=== PATIENT | male | born 1980 | race Caucasian/White ===

== ENCOUNTER 2018-11-11 20:24 | Emergency (ER) | payer BC ==
[2018-11-11] MEDS ORDERED: NA CHLORIDE 0.9% 1,000 ML ONE (21:38)
[2018-11-11 22:43] LABS: Absolute Lymphocytes (CBC) 1.6 K/uL (0.7-4.9); Basophils % 0.3 % (0-1.3); Eosinophils % 0.4 % (0-4.4); Hematocrit 47.8 % (39.6-49.0); Lymphocytes % 14.1 % (15.3-44.8); MPV 8.9 fL (7.6-11.3); Monocytes % 5.6 % (3.3-12.3); RBC Red Blood Cell Count 5.58 M/uL (4.33-5.43)
[2018-11-11 22:44] LABS: Protime INR 1.04
[2018-11-11 23:33] LABS: ALT/SGPT 56 U/L (12-78); AST/SGOT 29 U/L (15-37); Albumin 3.9 g/dL (3.4-5.0); Alkaline Phosphatase 69 U/L (45-117); BUN Blood Urea Nitrogen 21 mg/dL (7-18); Bicarbonate 26 mmol/L (21-32); Bilirubin Direct < 0.1 mg/dL (0-0.2); Bilirubin Total 0.3 mg/dL (0.2-1.0); Glucose Level 103 mg/dL (74-106); Potassium 4.2 mmol/L (3.5-5.1); Protein, Total 8.2 g/dL (6.4-8.2); Sodium Level 140 mmol/L (136-145); Troponin (Emerg Dept Use Only) < 0.02 ng/mL (0.0-0.045)
[2018-11-12] MEDS ORDERED: ASPIRIN 81 MG CHEWABLE TABLET ONE (04:43)
--- NOTE | 2018-11-12 08:07 | RAD REPORT ---
EXAM DESCRIPTION: MRI - Brain Wo Cont - 11/12/2018 7:17 am CLINICAL HISTORY: Syncope, stroke-like symptoms COMPARISON: CT head November 11 TECHNIQUE: Sagittal T1-weighted images were obtained along with axial PD, heavily T2-weighted and T2 -FLAIR images. Axial DWI and ADC mapping sequences were also obtained along with coronal heavily T2-w eighted images. FINDINGS: No intracranial hemorrhage, mass or acute infarction. There is no edema or shift of midlin e structures. No extra-axial fluid collections. Desir-matter/white matter junction is preserved. Signa l voids are seen as a normal finding in the major intracranial vessels. No globe or orbital content abnormality. No sella or supra sella abnormality. Mastoid air cells and paranasal sinuses are clear. IMPRESSION: Negative non-contrast MRI of the Brain.
--- NOTE | 2018-11-12 08:38 | ER ---
Nurse's Notes [facility] Name: Julito Alva III Age: 37 yrs Sex: Male : 1980 Arrival Date: 11/11/2018 Time: 20:25 Bed 7 Private MD: Diagnosis: Left facial numbness Presentation: 11/11 20:33 Presenting complaint: Patient states: Around 1900 tonight I was sitting in bed, felt la1 tingly and flush and like I was going to pass out, I stood up and I really felt like I was going to pass out. At that same time the left side of my face began to feel a little numb. Transition of care: patient was not received from another setting of care. Onset of symptoms was November 11, 2018 at 19:00. Risk Assessment: Do you want to hurt yourself or someone else? Patient reports no desire to harm self or others. Initial Sepsis Screen: Does the patient meet any 2 criteria? No. Patient's initial sepsis screen is negative. Does the patient have a suspected source of infection? No. Patient's initial sepsis screen is negative. Care prior to arrival: None. 20:33 Method Of Arrival: Ambulatory la1 20:33 Acuity: MADDIE 2 la1 Historical: - Allergies: 20:36 No Known Allergies; la1 - Home Meds: 20:36 None [Active]; la1 - PMHx: 20:36 None; la1 - PSHx: 20:36 None; la1 - Immunization history:: Adult Immunizations up to date. - Social history:: Smoking status: Patient/guardian denies using tobacco. - Ebola Screening: : No symptoms or risks identified at this time. - Family history:: not pertinent. - Hospitalizations: : No recent hospitalization is reported. Screenin:49 Abuse screen: Denies threats or abuse. Denies injuries from another. Nutritional ch screening: No deficits noted. Tuberculosis screening: No symptoms or risk factors identified. Fall Risk None identified. Assessment: 20:49 General: Appears in no apparent distress. comfortable, Behavior is calm, cooperative, ch appropriate for age. Pain: Complains of pain in left jaw Pain currently is 4 out of 10 on a pain scale. Pain began suddenly. Neuro: No deficits noted. Level of Consciousness is awake, alert, obeys commands, Oriented to person, place, time, situation, Save All Operator are equal bilaterally Moves all extremities. Full function Gait is steady, Speech is normal, Facial symmetry appears normal, Facial symmetry: tongue is midline, Pupils are PERRLA, Reports pt c/o feeling tingling and numbness to beatris sides of face, and then pain to L jaw. Neuro: Reports pt also states he felt like he was going to pass out at home, and had a headache and dizziness since 11/07/18. Respiratory: Airway is patent Trachea midline Respiratory effort is even, unlabored, Breath sounds are clear bilaterally. GI: No signs and/or symptoms were reported involving the gastrointestinal system. : No signs and/or symptoms were reported regarding the genitourinary system. Derm: Skin is pink, warm \T\ dry. Musculoskeletal: No signs and/or symptoms reported regarding the musculoskeletal system. 21:38 Patient has been NPO before screening. The patient is alert, and able to follow ak1 commands. The patient does not exhibit slurred or garbled speech. The patient is not exhibiting difficulty speaking. The patient is exhibiting difficulty understanding words. The patient is able to swallow own secretions with no drooling or need for suction. Patient tolerated one teaspoon of water. No drooling, immediate coughing, gurgling, or clearing of the throat was noted. The patient tolerated 90mL of water. No drooling, immediate coughing, gurgling, or clearing of the throat was noted. The patient passed the bedside swallow screening. Oral medications may be given as ordered. Contact Physician for further diet orders. Provider notified of bedside swallow screening results: Brad Bautista MD. 23:01 VAN Scoring: Arm Drift: Patients demonstrates NO arm weakness. Patient is VAN Negative. ch Visual Disturbance: No visual disturbance noted. Aphasia: No aphasia noted. Neglect: No neglect noted. T-PA (Activase) Screening: Contraindications: Rapidly improving condition or minor deficit: Yes. 23:01 Reassessment: Patient appears in no apparent distress at this time. Patient and/or ch family updated on plan of care and expected duration. Pain level reassessed. Patient is alert, oriented x 3, equal unlabored respirations, skin warm/dry/pink. Patient denies pain at this time. Patient states feeling better. Patient states symptoms have improved. 11/12 00:00 Reassessment: Patient appears in no apparent distress at this time. Patient and/or family updated on plan of care and expected duration. Pain level reassessed. Patient is alert, oriented x 3, equal unlabored respirations, skin warm/dry/pink. pt to be held in ER till MRI is available tomorrow morning. pt symptoms are improved, still c/o feeling tingling in L lower jaw. pt verb understanding of staying in ER till morning. 00:43 Reassessment: Patient appears in no apparent distress at this time. No changes from previously documented assessment. Patient and/or family updated on plan of care and expected duration. Pain level reassessed. Patient is alert, oriented x 3, equal unlabored respirations, skin warm/dry/pink. 02:14 Reassessment: Patient appears in no apparent distress at this time. No changes from previously documented assessment. Patient and/or family updated on plan of care and expected duration. Pain level reassessed. Patient is alert, oriented x 3, equal unlabored respirations, skin warm/dry/pink. pt oob, ambulates to restroom then to new quieter room with TV and closing door while he waits for his MRI. 03:30 Reassessment: Patient appears in no apparent distress at this time. No changes from previously documented assessment. Patient and/or family updated on plan of care and expected duration. Pain level reassessed. 04:30 Reassessment: Patient appears in no apparent distress at this time. pt asleep. 05:30 Reassessment: Patient appears in no apparent distress at this time. No changes from previously documented assessment. 06:04 Reassessment: Patient appears in no apparent distress at this time. No changes from previously documented assessment. 07:12 Reassessment: Patient appears in no apparent distress at this time. Patient and/or family updated on plan of care and expected duration. Pain level reassessed. Patient is alert, oriented x 3, equal unlabored respirations, skin warm/dry/pink. report given to milka omer, pt in MRI now. 07:25 Reassessment: Pt back from MRI via wheelchair.. aa5 07:27 General: Appears comfortable. Pain: Denies pain. Neuro: Level of Consciousness is aa5 awake, alert, obeys commands, Oriented to person, place, time, situation, Save All Operator are equal bilaterally Moves all extremities. Gait is steady, Speech is normal, Facial symmetry appears normal, Pupils are PERRLA, Denies weakness blurred vision dizziness, difficulty swallowing, paresthesias numbness headache. Cardiovascular: Heart tones S1 S2 present Rhythm is sinus rhythm. Respiratory: Airway is patent Respiratory effort is even, unlabored, Respiratory pattern is regular, symmetrical. GI: Patient currently denies nausea, vomiting. : No signs and/or symptoms were reported regarding the genitourinary system. EENT: No signs and/or symptoms were reported regarding the EENT system. Derm: Skin is pink, warm \T\ dry. Musculoskeletal: Range of motion: intact in all extremities. 07:27 Reassessment: Pt notified of wait time for MRI results, pt verbalized understanding. . aa5 08:50 Reassessment: Patient is alert, oriented x 3, equal unlabored respirations, skin aa5 warm/dry/pink. Patient denies pain at this time. Denies any other symptoms . Vital Signs: 11/11 20:35 BP 163 / 87; Pulse 85; Resp 16; Temp 98.4; Pulse Ox 98% on R/A; Weight 119.29 kg; la1 Height 6 ft. 1 in. (185.42 cm); 21:00 BP 137 / 88; Pulse 68; Resp 14; Pulse Ox 99% on R/A; Pain 0/10; ch 22:00 BP 132 / 72; Pulse 70; Resp 15; Pulse Ox 100% on R/A; Pain 0/10; ch 23:01 BP 117 / 74; Pulse 62; Resp 14; Temp 97.8; Pulse Ox 99% on R/A; Pain 0/10; ch 11/12 00:43 BP 108 / 84; Pulse 63; Resp 14; Temp 98.1; Pulse Ox 99% on R/A; Pain 0/10; ch 02:00 BP 116 / 74; Pulse 66; Resp 17; Pulse Ox 97% on R/A; lp1 05:34 BP 130 / 78; Pulse 97; Resp 16; Temp 97.; ag4 05:34 Pulse Ox 100% on R/A; ag4 06:06 BP 126 / 80; Pulse 82; Resp 16; Temp 98.2; Pulse Ox 99% on R/A; Pain 0/10; ch 07:27 BP 141 / 89; Pulse 63; Resp 16 S; Temp 98.0(O); Pulse Ox 98% on R/A; Pain 0/10; aa5 08:06 BP 128 / 87; Pulse 62; Resp 15; Pulse Ox 98% ; sv 08:45 BP 130 / 84; Pulse 64; Resp 16 S; Pulse Ox 98% on R/A; Pain 0/10; aa5 11/11 20:35 Body Mass Index 34.70 (119.29 kg, 185.42 cm) la1 NIH Stroke Scale Scores: 11/11 21:38 NIHSS Score: 0 ak1 11/12 07:27 NIHSS Score: 0 aa5 ED Course: 11/11 20:25 Patient arrived in ED. am2 20:35 Triage completed. la1 20:35 Arm band placed on right wrist. la1 20:48 Radha Hernandez, RN is Primary Nurse. ch 20:49 No apparent distress. Resting quietly. ch 20:49 Patient has correct armband on for positive identification. Bed in low position. Call ch light in reach. Adult w/ patient. Pulse ox on. NIBP on. 20:49 No provider procedures requiring assistance completed. ch 20:55 Brad Bautista MD is Attending Physician. wa 21:10 CT completed. Patient tolerated procedure well. Patient moved back from CT. mw3 21:16 CT Stroke Brain w/o Contrast In Process Unspecified. EDMS 21:19 Inserted saline lock: 20 gauge in left forearm, using aseptic technique. Blood ch collected. 21:28 Stroke CXR 1 View In Process Unspecified. EDMS 21:50 IV discontinued, intact, bleeding controlled, Pressure dressing applied, pt IV in L FA ch appears to be infiltrated, pt has swelling to area. no redness, pt c/o slight pain. IV removed. 22:00 Missed attempt(s): 20 gauge in right antecubital area. Bleeding controlled, band aid ch applied, catheter tip intact. 22:10 Inserted saline lock: 20 gauge in right antecubital area, using aseptic technique. ch Blood collected. Started by Jade Wheeler, recollect labs sent off. 11/12 07:01 Patient moved to MRI via wheelchair. em2 07:11 MRI - Brain Wo Cont In Process Unspecified. EDMS 07:28 MRI completed. Patient tolerated well. Patient moved back from MRI. em2 Administered Medications: 11/11 21:24 Drug: NS 0.9% 1000 ml Route: IV; Rate: 1 bolus; Site: left forearm; lp1 23:04 Follow up: IV Status: Completed infusion; IV Intake: 1000ml 11/12 04:29 Drug: Aspirin Chewable Tablet 324 mg Route: PO; ch 06:05 Follow up: Response: No adverse reaction ch 06:05 Follow up: Response: No adverse reaction ch Intake: 11/11 23:04 IV: 1000ml; Total: 1000ml. ch Outcome: 11/12 08:37 Discharge ordered by . ps1 08:55 Discharged to home ambulatory, with significant other. aa5 08:55 Condition: stable 08:55 Discharge instructions given to patient, Instructed on discharge instructions, follow up and referral plans. medication usage, Demonstrated understanding of instructions, follow-up care, medications, Prescriptions given X 3. 09:02 Patient left the ED. aa5 NIH Stroke Scale - NIH Stroke Score Date: 11/11/2018 Time: 21:38 Total Score = 0 1a. Level of Consciousness (LOC) - 0(Alert) 1b. Level of Consciousness (LOC) (Year \T\ Age) - 0(Both) 1c. 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 Best Gaze (Lateral Gaze Paresis) - 0(Normal) 3. Visual Field Loss - 0(No visual loss) 4. Facial Palsy - 0(Normal) 5a. Left Arm: Motor (10-second hold) - 0(No drift) 5b. Right Arm: Motor (10-second hold) - 0(No drift) 6a. Left Leg: Motor (5-second hold - always test supine) - 0(No drift) 6b. Right Leg: Motor (5-second hold - always test supine) - 0(No drift) 7. Limb Ataxia (finger/nose \T\ heel/adrian - test with eyes open) - 0(Absent) 8. Sensory Loss (pinprick arms/legs/face) - 0(Normal) 9. Best Language: Aphasia (description/naming/reading) - 0(No aphasia) 10. Dysarthria (speech clarity - read or repeat words) - 0(Normal) 11. Extinction and Inattention (visual/tactile/auditory/spatial/personal) - 0(No abnormality) Initials: ak1 NIH Stroke Scale - NIH Stroke Score Date: 11/12/2018 Time: 07:27 Total Score = 0 1a. Level of Consciousness (LOC) - 0(Alert) 1b. Level of Consciousness (LOC) (Year \T\ Age) - 0(Both) 1c. 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 Best Gaze (Lateral Gaze Paresis) - 0(Normal) 3. Visual Field Loss - 0(No visual loss) 4. Facial Palsy - 0(Normal) 5a. Left Arm: Motor (10-second hold) - 0(No drift) 5b. Right Arm: Motor (10-second hold) - 0(No drift) 6a. Left Leg: Motor (5-second hold - always test supine) - 0(No drift) 6b. Right Leg: Motor (5-second hold - always test supine) - 0(No drift) 7. Limb Ataxia (finger/nose \T\ heel/adrian - test with eyes open) - 0(Absent) 8. Sensory Loss (pinprick arms/legs/face) - 0(Normal) 9. Best Language: Aphasia (description/naming/reading) - 0(No aphasia) 10. Dysarthria (speech clarity - read or repeat words) - 0(Normal) 11. Extinction and Inattention (visual/tactile/auditory/spatial/personal) - 0(No abnormality) Initials: aa5 Signatures: Dispatcher [employer] EDRadha Guadalupe, RN Fay Morrow ch RN Milka Yadav RN RN aa5 Lizeth Escamilla, RN RN candy1 Huang Rahman 2 Gorge Valdez RN RN la1 Carin Spears RN RN ak1 Tenisha Martinez am2 Brad Bautista MD MD wa Singer, Phillip, MD MD ps1 Willis, Michelle 3 Khurram Partida 4
--- NOTE | 2018-11-12 08:38 | EDPHYS ---
Physician Documentation [facility] Name: Julito Alva III Age: 37 yrs Sex: Male : 1980 Arrival Date: 11/11/2018 Time: 20:25 Bed 7 Private MD: ED Physician Brad Bautista HPI: 11/11 21:27 This 37 yrs old Male presents to ER via Ambulatory with complaints of wa Numbness Of Face, Near Syncope. 21:27 The patient's problem is reported as paresthesias, in left side of face, dizziness. wa Onset: The symptoms/episode began/occurred 4 day(s) ago. Duration: The episodes are intermittent. Context: the episode(s) was witnessed, by no one, symptoms became apparent 4 days ago, occurred at home, occurred while the patient was at rest, Possible contributing factors include: none. The symptoms are alleviated by nothing. The symptoms are aggravated by standing, walking. Associated signs and symptoms: Pertinent positives: dizziness, Pertinent negatives: abdominal pain, ataxia, blurred vision, chest pain, confusion, headache, nausea, palpitations, shortness of breath. Severity of symptoms: At their worst the symptoms were moderate in the emergency department the symptoms are unchanged. Patient's baseline: Neuro: alert and fully oriented, Motor: no deficits, Ambulation: walks without assistance, Speech: normal, The patient has a previous history of none. The patient has not experienced similar symptoms in the past. The patient has been recently seen by a physician: 3 day(s) ago, with similar presenting complaints, was started on prednisone for potential inner ear problem, per pt. pt states 4 days ago he suddenly felt flushed and then became dizzy. described dizziness as feeling a bit off balance. worse with certain movements of the head. denies MANZANO. 3 days ago, saw [facility] and scripted for steroids that he's taking. was actually feeling better but tonight felt a sensation of L lower face numbness. denies MANZANO, slurred speech or difficulty walking or talking. Historical: - Allergies: 20:36 No Known Allergies; la1 - Home Meds: 20:36 None [Active]; la1 - PMHx: 20:36 None; la1 - PSHx: 20:36 None; la1 - Immunization history:: Adult Immunizations up to date. - Social history:: Smoking status: Patient/guardian denies using tobacco. - Ebola Screening: : No symptoms or risks identified at this time. - Family history:: not pertinent. - Hospitalizations: : No recent hospitalization is reported. ROS: 21:37 Constitutional: Negative for fever, chills, and weight loss, Eyes: Negative for injury, wa pain, redness, and discharge, ENT: Negative for injury, pain, and discharge, Neck: Negative for injury, pain, and swelling, Cardiovascular: Negative for chest pain, palpitations, and edema, Respiratory: Negative for shortness of breath, cough, wheezing, and pleuritic chest pain, Abdomen/GI: Negative for abdominal pain, nausea, vomiting, diarrhea, and constipation, Back: Negative for injury and pain, : Negative for injury, bleeding, discharge, and swelling, MS/Extremity: Negative for injury and deformity, Skin: Negative for injury, rash, and discoloration. 21:37 Neuro: Positive for dizziness, L facial numbness. 21:37 All other systems are negative. Exam: 21:37 Radiologist reports: on license of [facility] 21:37 Constitutional: This is a well developed, well nourished patient who is awake, alert, and in no acute distress. Head/Face: Normocephalic, atraumatic. Eyes: Pupils equal round and reactive to light, extra-ocular motions intact. Lids and lashes normal. Conjunctiva and sclera are non-icteric and not injected. Cornea within normal limits. Periorbital areas with no swelling, redness, or edema. ENT: Nares patent. No nasal discharge, no septal abnormalities noted. Tympanic membranes are normal and external auditory canals are clear. Oropharynx with no redness, swelling, or masses, exudates, or evidence of obstruction, uvula midline. Mucous membranes moist. Neck: Trachea midline, no thyromegaly or masses palpated, and no cervical lymphadenopathy. Supple, full range of motion without nuchal rigidity, or vertebral point tenderness. No Meningismus. Chest/axilla: Normal chest wall appearance and motion. Nontender with no deformity. No lesions are appreciated. Cardiovascular: Regular rate and rhythm with a normal S1 and S2. No gallops, murmurs, or rubs. Normal PMI, no JVD. No pulse deficits. Respiratory: Lungs have equal breath sounds bilaterally, clear to auscultation and percussion. No rales, rhonchi or wheezes noted. No increased work of breathing, no retractions or nasal flaring. Abdomen/GI: Soft, non-tender, with normal bowel sounds. No distension or tympany. No guarding or rebound. No evidence of tenderness throughout. Back: No spinal tenderness. No costovertebral tenderness. Full range of motion. Skin: Warm, dry with normal turgor. Normal color with no rashes, no lesions, and no evidence of cellulitis. MS/ Extremity: Pulses equal, no cyanosis. Neurovascular intact. Full, normal range of motion. Psych: Awake, alert, with orientation to person, place and time. Behavior, mood, and affect are within normal limits. 21:37 Neuro: Orientation: is normal, appropriate for stated age, no acute changes, Mentation: is normal, Cranial nerves: grossly normal, Cerebellar function: Romberg testing is negative, normal finger to nose testing, heel to adrian testing is normal, able to perform alternating rapid hand movements, Motor: is normal, Sensation: numbness, of the left cheek and left jaw, Gait: is steady. Vital Signs: 20:35 BP 163 / 87; Pulse 85; Resp 16; Temp 98.4; Pulse Ox 98% on R/A; Weight 119.29 kg; la1 Height 6 ft. 1 in. (185.42 cm); 21:00 BP 137 / 88; Pulse 68; Resp 14; Pulse Ox 99% on R/A; Pain 0/10; ch 22:00 BP 132 / 72; Pulse 70; Resp 15; Pulse Ox 100% on R/A; Pain 0/10; ch 23:01 BP 117 / 74; Pulse 62; Resp 14; Temp 97.8; Pulse Ox 99% on R/A; Pain 0/10; ch 07/08 00:43 BP 108 / 84; Pulse 63; Resp 14; Temp 98.1; Pulse Ox 99% on R/A; Pain 0/10; ch 02:00 BP 116 / 74; Pulse 66; Resp 17; Pulse Ox 97% on R/A; lp1 05:34 BP 130 / 78; Pulse 97; Resp 16; Temp 97.; ag4 05:34 Pulse Ox 100% on R/A; ag4 06:06 BP 126 / 80; Pulse 82; Resp 16; Temp 98.2; Pulse Ox 99% on R/A; Pain 0/10; ch 07:27 BP 141 / 89; Pulse 63; Resp 16 S; Temp 98.0(O); Pulse Ox 98% on R/A; Pain 0/10; aa5 08:06 BP 128 / 87; Pulse 62; Resp 15; Pulse Ox 98% ; sv 08:45 BP 130 / 84; Pulse 64; Resp 16 S; Pulse Ox 98% on R/A; Pain 0/10; aa5 11/11 20:35 Body Mass Index 34.70 (119.29 kg, 185.42 cm) la1 NIH Stroke Scale Scores: 11/11 21:38 NIHSS Score: 0 ak1 11/12 07:27 NIHSS Score: 0 aa5 MDM: 11/11 20:56 Patient medically screened. ky 21:38 Differential diagnosis: CVA, TIA, consider other neurological path like MS. exam wa inconsistent with Bruce's. 11/12 02:09 Data reviewed: vital signs, nurses notes. Test interpretation: by ED physician or ky midlevel provider: labs noted for elevated wbc at 11.7. CT brain noted negative for acute process. ED course: pt remained same. No neurologist in [place] as such hospitalist will not admit. will hold for MRI in the AM and d/c with neuro f/u if negative. will transfer if MRI abdnml. 02:11 Test interpretation: by ED physician or midlevel provider: EKG: interp by me: HR 66. wa nml axis. nml intervals. no acute zonal ischemic changes noted. 07:29 Transition of care: After a detail discussion of the patient's case, care is wa transferred to Avelino Patel MD. Special discussion: Dr. Patel to check MRI results and dispo pt as needed. 08:31 ED course: patient states that his symptoms resolved. MRI negative. Home with [place] ps1 palsy medications wait and see. Ophtho if symptoms arise + eye patch. . 11/11 20:58 Order name: Hepatic Function ky 11/11 20:58 Order name: Troponin (emerg Dept Use Only) ky 11/11 20:58 Order name: Basic Metabolic Panel ky 11/11 20:58 Order name: CBC with Diff; Complete Time: 23:49 11/11 20:58 Order name: Protime (+inr); Complete Time: 23:49 11/11 21:00 Order name: Sed Rate; Complete Time: 23:49 11/11 20:58 Order name: CT Stroke Brain w/o Contrast 11/11 20:58 Order name: Stroke CXR 1 View 11/11 21:06 Order name: Liver (Hepatic) Function; Complete Time: 23:49 EDMS 11/11 21:06 Order name: Troponin (Emerg Dept Use Only); Complete Time: 23:49 EDMS 11/11 21:06 Order name: Basic Metabolic Panel; Complete Time: 23:49 EDMS 11/12 00:10 Order name: MRI - Brain Wo Cont; Complete Time: 08:41 ky 11/12 05:04 Order name: Glucose, Ancillary Testing EDMS 11/12 05:05 Order name: Glucose, Ancillary Testing; Complete Time: 08:41 EDMS 11/11 20:58 Order name: EKG; Complete Time: 21:07 11/11 20:58 Order name: Accucheck; Complete Time: 21:38 11/11 20:58 Order name: Cardiac monitoring; Complete Time: 21:38 11/11 20:58 Order name: EKG - Nurse/Tech; Complete Time: 21:38 11/11 20:58 Order name: IV Saline Lock; Complete Time: 21:38 11/11 20:58 Order name: Labs collected and sent; Complete Time: 21:39 11/11 20:58 Order name: NPO; Complete Time: 21:39 11/11 20:58 Order name: O2 Per Protocol; Complete Time: 21:39 11/11 20:58 Order name: O2 Sat Monitoring; Complete Time: 21:39 11/12 06:25 Order name: Diet Regular; Complete Time: 06:25 ch Administered Medications: 11/11 21:24 Drug: NS 0.9% 1000 ml Route: IV; Rate: 1 bolus; Site: left forearm; lp1 23:04 Follow up: IV Status: Completed infusion; IV Intake: 1000ml 11/12 04:29 Drug: Aspirin Chewable Tablet 324 mg Route: PO; ch 06:05 Follow up: Response: No adverse reaction ch 06:05 Follow up: Response: No adverse reaction ch Disposition: 11/12/18 08:37 Discharged to Home. Impression: Left facial numbness. - Condition is Stable. - Discharge Instructions: Bruce Palsy, Adult. - Prescriptions for Acyclovir 800 mg Oral Tablet - take 1 tablet by ORAL route 5 times per day for 10 days; 50 tablet. Medrol (Enzo) 4 mg Oral Tablets, Dose Pack - take 1 tablet by ORAL route as directed - follow package instructions; 1 packet. Erythromycin 5 mg/gram (0.5 %) Ophthalmic Ointment - apply 1 centimeter by OPHTHALMIC route 2-3 times daily for 7 days; 1 tube. - Medication Reconciliation Form, Thank You Letter, Antibiotic Education, Prescription Opioid Use form. - Follow up: Private Physician; When: As needed; Reason: Further diagnostic work-up, Recheck today's complaints, Continuance of care, Re-evaluation by your physician. Follow up: Emergency Department; When: As needed; Reason: Worsening of condition. - Problem is new. - Symptoms are resolved. NIH Stroke Scale - NIH Stroke Score Date: 11/11/2018 Time: 21:38 Total Score = 0 1a. Level of Consciousness (LOC) - 0(Alert) 1b. Level of Consciousness (LOC) (Year \T\ Age) - 0(Both) 1c. LOC Commands (Open \T\ Closes Eyes/President [place]) - 0(Both) 2. Best Gaze (Lateral Gaze Paresis) - 0(Normal) 3. Visual Field Loss - 0(No visual loss) 4. Facial Palsy - 0(Normal) 5a. Left Arm: Motor (10-second hold) - 0(No drift) 5b. Right Arm: Motor (10-second hold) - 0(No drift) 6a. Left Leg: Motor (5-second hold - always test supine) - 0(No drift) 6b. Right Leg: Motor (5-second hold - always test supine) - 0(No drift) 7. Limb Ataxia (finger/nose \T\ heel/adrian - test with eyes open) - 0(Absent) 8. Sensory Loss (pinprick arms/legs/face) - 0(Normal) 9. Best Language: Aphasia (description/naming/reading) - 0(No aphasia) 10. Dysarthria (speech clarity - read or repeat words) - 0(Normal) 11. Extinction and Inattention (visual/tactile/auditory/spatial/personal) - 0(No abnormality) Initials: ak1 NIH Stroke Scale - NIH Stroke Score Date: 11/12/2018 Time: 07:27 Total Score = 0 1a. Level of Consciousness (LOC) - 0(Alert) 1b. Level of Consciousness (LOC) (Year \T\ Age) - 0(Both) 1c. LOC Commands (Open \T\ Closes Eyes/President [place]) - 0(Both) 2. Best Gaze (Lateral Gaze Paresis) - 0(Normal) 3. Visual Field Loss - 0(No visual loss) 4. Facial Palsy - 0(Normal) 5a. Left Arm: Motor (10-second hold) - 0(No drift) 5b. Right Arm: Motor (10-second hold) - 0(No drift) 6a. Left Leg: Motor (5-second hold - always test supine) - 0(No drift) 6b. Right Leg: Motor (5-second hold - always test supine) - 0(No drift) 7. Limb Ataxia (finger/nose \T\ heel/adrian - test with eyes open) - 0(Absent) 8. Sensory Loss (pinprick arms/legs/face) - 0(Normal) 9. Best Language: Aphasia (description/naming/reading) - 0(No aphasia) 10. Dysarthria (speech clarity - read or repeat words) - 0(Normal) 11. Extinction and Inattention (visual/tactile/auditory/spatial/personal) - 0(No abnormality) Initials: aa5 Signatures: Dispatcher [employer] EDMS Radha Hernandez RN RN Laina Pope RN RN aa5 Lizeth Escamilla RN RN lp1 Gorge Valdez RN RN la1 Brad Bautista MD MD wa Avelino Patel MD MD ps1 Corrections: (The following items were deleted from the chart) 09:02 08:37 11/12/2018 08:37 Discharged to Home. Impression: Left facial numbness. aa5 Condition is Stable. Forms are Medication Reconciliation Form, Thank You Letter, Antibiotic Education, Prescription Opioid Use. Follow up: Private Physician; When: As needed; Reason: Further diagnostic work-up, Recheck today's complaints, Continuance of care, Re-evaluation by your physician. Follow up: Emergency Department; When: As needed; Reason: Worsening of condition. Problem is new. Symptoms are resolved. ps1
--- NOTE | 2018-11-12 08:46 | RAD REPORT ---
EXAM DESCRIPTION: RAD - Chest Single View - 11/11/2018 9:30 pm CLINICAL HISTORY: Dizziness, weakness, shortness of breath COMPARISON: None. TECHNIQUE: AP portable chest image was obtained 2125 hours . FINDINGS: Lungs are clear. Heart and vasculature are normal. No measurable pleural effusion and no p neumothorax. No acute bony abnormality seen. No acute aortic findings suspected. IMPRESSION: No acute cardiopulmonary process.
--- NOTE | 2018-11-12 09:53 | RAD REPORT ---
EXAM DESCRIPTION: CT - Ct Stroke Brain Wo Cont - 11/11/2018 10:23 pm ADDENDUM #1 Clinical findings were conveyed to Dr. Bautista. Electronically signed by: Simona Blanco MD 11/12/2018 12:02 AM CDT End of Addendum EXAM DESCRIPTION: Ct Stroke Brain Wo Cont CLINICAL HISTORY: 37 years Male dizziness, L lower facial numbness COMPARISON: None TECHNIQUE: Images were obtained in axial, sagittal, and coronal planes. This exam was performed according to our departmental dose-optimization program which includes use of Automated Exposure Control, adjustment of the mA and/or kV according to patient size and/or use of i terative reconstruction technique. FINDINGS: Ventricular system appears normal. No abnormal areas of increased or decreased attenuation are seen involving the brain parenchyma. No e xtra-axial fluid collections noted. No evidence for skull fracture. Symmetric aeration mastoid air cells bilaterally. Lobular mucosal thi ckening anterior right maxillary antrum. IMPRESSION: No acute intracranial abnormality. No evidence for hemorrhage, mass lesion, or large acu te infarction. Electronically signed by: Simona Blanco MD 11/11/2018 9:24 PM CDT Due to temporary technical issues with the PACS/Fluency reporting system, reports are being signed by the in house radiologist as a courtesy to ensure prompt reporting. The interpreting radiologist is f ully responsible for the content of the report.
--- NOTE | 2018-11-12 12:52 | EKG ---
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
== END 2018-11-12 09:02 | disposition home or self-care (01) ==
LOC: ER 20:24
DX: R20.0 Anesthesia of skin (principal)
CPT/HCPCS: 36415; 70450; 70551; 71045; 80048; 80076; 82962; 84484; 85025; 85610; 85652; 93005; 96360; 96361; 99285; J7030

== ENCOUNTER 2019-06-18 14:52 | Emergency (ER) | payer BC ==
[2019-06-18 16:27] LABS: Absolute Lymphocytes (CBC) 2.7 K/uL (0.7-4.9); Basophils % 0.5 % (0-1.3); Lymphocytes % 26.2 % (15.3-44.8); MPV 8.4 fL (7.6-11.3); RBC Red Blood Cell Count 5.46 M/uL (4.33-5.43)
[2019-06-18 16:29] LABS: Protime INR 1.06
[2019-06-18 17:02] LABS: Blood Morphology Comment NOT SEEN (NOT SEEN); Platelet Estimate ADEQ
[2019-06-18 17:13] LABS: ALT/SGPT 63 U/L (12-78); AST/SGOT 32 U/L (15-37); Albumin 3.9 g/dL (3.4-5.0); Alkaline Phosphatase 73 U/L (45-117); BUN Blood Urea Nitrogen 15 mg/dL (7-18); Bicarbonate 28 mmol/L (21-32); Bilirubin Direct < 0.1 mg/dL (0-0.2); Bilirubin Total 0.4 mg/dL (0.2-1.0); Glucose Level 99 mg/dL (74-106); Magnesium 2.2 mg/dL (1.8-2.4); NT PRO-BNP 7 pg/mL (<125); Potassium 4.1 mmol/L (3.5-5.1); Protein, Total 8.3 g/dL (6.4-8.2); Sodium Level 140 mmol/L (136-145); Troponin (Emerg Dept Use Only) < 0.02 ng/mL (0.0-0.045)
--- NOTE | 2019-06-18 17:21 | RAD REPORT ---
EXAM DESCRIPTION: Jon Jonas And Richard (2 Views)06/18/2019 4:54 pm CLINICAL HISTORY: Chest pain COMPARISON: June 11, 2019 FINDINGS: The lungs appear clear of acute infiltrate. The heart is normal size IMPRESSION: No acute abnormalities displayed
[2019-06-18] MEDS ORDERED: NA CHLORIDE 0.9% 1,000 ML ONE (17:34)
--- NOTE | 2019-06-18 18:31 | EDPHYS ---
Physician Documentation [facility] Name: Julito Alva III Age: 38 yrs Sex: Male : 1980 Arrival Date: 06/18/2019 Time: 14:54 Bed 8 Private MD: ED Physician Julio C Gomez HPI: 06/18 16:01 This 38 yrs old Male presents to ER via Ambulatory with complaints of Chest pm1 Pain, Dizziness. 16:01 The patient or guardian reports chest pain that is located primarily in the left pm1 breast. The pain does not radiate. Associated signs and symptoms: Pertinent positives: dizziness, Pertinent negatives: abdominal pain, headache, nausea, shortness of breath, vomiting. The chest pain is described as "rolling". Duration: The patient or guardian reports a single episode, that is now resolved. Modifying factors: The symptoms are alleviated by nothing. the symptoms are aggravated by nothing. Severity of pain: in the emergency department the pain is a 0 / 10. The patient has not experienced similar symptoms in the past. The patient has been recently seen by a physician: the patient's primary care provider. Diagnosed with bronchitis by his PCP and prescribed Levaquin initially. The patient followed up with his PCP because the medication was making him dizzy. Switched to azithromycin. Took his first dose of azithromycin last night and he felt better until he had chest pain at 1300. 16:01 Patient believes that his symptoms might be related to the antibiotics that he is pm1 taking. Historical: - Allergies: 15:44 unsure if allergic to recent antibiotics or inhalers; jl7 - Home Meds: 15:44 None [Active]; jl7 - PMHx: 15:44 None; jl7 - PSHx: 15:44 None; jl7 - Immunization history:: Adult Immunizations not up to date. - Coronavirus screen:: The patient has NOT traveled to [place] in the past 14 days. Proceed with normal triage process as indicated. - Social history:: Smoking status: Patient denies any tobacco usage or history of. - Ebola Screening: : No symptoms or risks identified at this time. ROS: 16:01 Constitutional: Negative for fever, chills, and weight loss, Eyes: Negative for injury, pm1 pain, redness, and discharge, ENT: Negative for injury, pain, and discharge, Neck: Negative for injury, pain, and swelling. 16:01 Respiratory: Negative for shortness of breath, cough, wheezing, and pleuritic chest pain, Abdomen/GI: Negative for abdominal pain, nausea, vomiting, diarrhea, and constipation, Back: Negative for injury and pain, MS/Extremity: Negative for injury and deformity, Skin: Negative for injury, rash, and discoloration. 16:01 Cardiovascular: Positive for chest pain, Negative for edema, palpitations. 16:01 Neuro: Positive for dizziness, Negative for headache, numbness, tingling, weakness. Exam: 16:01 Constitutional: This is a well developed, well nourished patient who is awake, alert, pm1 and in no acute distress. Head/Face: Normocephalic, atraumatic. Eyes: Pupils equal round and reactive to light, extra-ocular motions intact. Lids and lashes normal. Conjunctiva and sclera are non-icteric and not injected. Cornea within normal limits. Periorbital areas with no swelling, redness, or edema. ENT: Nares patent. No nasal discharge, no septal abnormalities noted. Tympanic membranes are normal and external auditory canals are clear. Oropharynx with no redness, swelling, or masses, exudates, or evidence of obstruction, uvula midline. Mucous membranes moist. Neck: Trachea midline, no thyromegaly or masses palpated, and no cervical lymphadenopathy. Supple, full range of motion without nuchal rigidity, or vertebral point tenderness. No Meningismus. Chest/axilla: Normal chest wall appearance and motion. Nontender with no deformity. No lesions are appreciated. Cardiovascular: Regular rate and rhythm with a normal S1 and S2. No gallops, murmurs, or rubs Respiratory: Lungs have equal breath sounds bilaterally, clear to auscultation and percussion. No rales, rhonchi or wheezes noted. No increased work of breathing, no retractions or nasal flaring. Abdomen/GI: Soft, non-tender, with normal bowel sounds. No distension or tympany. No guarding or rebound. No evidence of tenderness throughout. Back: No spinal tenderness. No costovertebral tenderness. Full range of motion. Skin: Warm, dry with normal turgor. Normal color with no rashes, no lesions, and no evidence of cellulitis. MS/ Extremity: Pulses equal, no cyanosis. Neurovascular intact. Full, normal range of motion. 16:01 Neuro: Orientation: is normal, Mentation: is normal, Motor: is normal, moves all fours. 16:08 ECG was reviewed by the Attending Physician. pm1 Vital Signs: 15:44 BP 139 / 93; Pulse 76; Resp 17 S; Temp 98.2(O); Pulse Ox 96% on R/A; Weight 117.93 kg jl7 (R); Height 6 ft. 1 in. (185.42 cm) (R); Pain 3/10; 16:26 BP 112 / 69 Supine; Pulse 73; Resp 17; Pulse Ox 91% on R/A; mh5 16:28 BP 123 / 82 Sitting; Pulse 76; Resp 14; Pulse Ox 98% on R/A; mh5 16:30 BP 120 / 83 Standing; Pulse 89; Resp 13; Pulse Ox 97% on R/A; mh5 17:23 BP 128 / 81; Pulse 74; Resp 21; Pulse Ox 95% ; sv 18:29 BP 122 / 81; Pulse 72; Resp 19; Pulse Ox 97% ; sv 15:44 Body Mass Index 34.30 (117.93 kg, 185.42 cm) jl7 MDM: 15:49 Patient medically screened. pm1 17:35 Data reviewed: vital signs. Data interpreted: Pulse oximetry: on room air is 95 %. pm1 Interpretation: normal. 17:35 Counseling: I had a detailed discussion with the patient and/or guardian regarding: lab pm1 results, radiology results, Patient reported dizziness with standing on orthostatic blood pressures. Will infuse 1 Liter of NS and reevaluate . 18:26 Counseling: I had a detailed discussion with the patient and/or guardian regarding: the pm1 historical points, exam findings, and any diagnostic results supporting the discharge/admit diagnosis, the need for outpatient follow up, for definitive care, to return to the emergency department if symptoms worsen or persist or if there are any questions or concerns that arise at home. 06/18 16:01 Order name: Basic Metabolic Panel pm1 06/18 16:01 Order name: CBC with Diff pm1 06/18 16:01 Order name: LFT's pm06/18 16:01 Order name: Magnesium pm1 06/18 16:01 Order name: NT PRO-BNP pm1 06/18 16:01 Order name: PT-INR pm06/18 16:01 Order name: Troponin (emerg Dept Use Only) pm1 06/18 16:28 Order name: CBC with Automated Diff; Complete Time: 17:05 EDMS 06/18 16:31 Order name: Protime (+INR); Complete Time: 16:47 EDMS 06/18 17:03 Order name: Manual Differential; Complete Time: 17:05 EDMS 06/18 17:13 Order name: Basic Metabolic Panel; Complete Time: 17:17 EDMS 06/18 17:13 Order name: Liver (Hepatic) Function; Complete Time: 17:17 EDMS 06/18 17:13 Order name: Troponin (Emerg Dept Use Only); Complete Time: 17:17 EDMS 06/18 17:13 Order name: NT PRO-BNP; Complete Time: 17:17 EDMS 06/18 16:01 Order name: EKG; Complete Time: 16:02 pm1 06/18 16:01 Order name: Cardiac monitoring; Complete Time: 16:26 pm06/18 16:01 Order name: EKG - Nurse/Tech; Complete Time: 16:26 pm1 06/18 16:01 Order name: IV Saline Lock; Complete Time: 16:26 pm1 06/18 16:01 Order name: Labs collected and sent; Complete Time: 16:26 pm1 06/18 16:01 Order name: O2 Per Protocol; Complete Time: 16:36 pm1 06/18 16:01 Order name: O2 Sat Monitoring; Complete Time: 16:36 pm1 06/18 16:01 Order name: Chest Pa And Lat (2 Views) XRAY pm06/18 16:01 Order name: Orthostatics; Complete Time: 16:36 pm1 06/18 17:13 Order name: Magnesium; Complete Time: 17:17 EDMS 06/18 17:22 Order name: RAD; Complete Time: 17:27 EDMS 06/18 17:39 Order name: Troponin (emerg Dept Use Only) pm06/18 18:14 Order name: Troponin (Emerg Dept Use Only); Complete Time: 18:26 EDMS EC:08 Rate is 78 beats/min. Rhythm is regular, Normal Sinus Rhythm with No ectopy. No Q pm1 waves. T waves are Normal. No ST changes noted. Clinical impression: Normal ECG. Administered Medications: 17:36 Drug: NS 0.9% 1000 ml Route: IV; Rate: 1000 ml; Site: right antecubital; ah 18:56 Follow up: IV Status: Completed infusion Disposition: 06/18/19 18:29 Discharged to Home. Impression: Chest pain, unspecified, Dehydration. - Condition is Stable. - Discharge Instructions: Nonspecific Chest Pain, Dehydration, Adult, Rehydration, Adult. - Medication Reconciliation Form, Thank You Letter, Antibiotic Education, Prescription Opioid Use form. - Follow up: Emergency Department; When: As needed; Reason: Worsening of condition. Follow up: Private Physician; When: 2 - 3 days; Reason: Recheck today's complaints, Continuance of care, Re-evaluation by your physician. - Problem is new. - Symptoms have improved. Addendum: 06/20/2019 08:02 Co-signature as Attending Physician, Julio C Gomez MD I agree with the assessment and c krause plan of care. Signatures: Dispatcher [employer] EDTN Julio C Gomez MD MD cha Marinas, Patrick, MANAGER CAMP MANAGER CAMP pm1 Ron Carson RN RN 7 Leighann Badillo, RN RN Corrections: (The following items were deleted from the chart) 06/18 18:57 18:29 06/18/2019 18:29 Discharged to Home. Impression: Chest pain, unspecified; Dehydration. Condition is Stable. Forms are Medication Reconciliation Form, Thank You Letter, Antibiotic Education, Prescription Opioid Use. Follow up: Emergency Department; When: As needed; Reason: Worsening of condition. Follow up: Private Physician; When: 2 - 3 days; Reason: Recheck today's complaints, Continuance of care, Re-evaluation by your physician. Problem is new. Symptoms have improved. pm1
--- NOTE | 2019-06-18 18:31 | ER ---
Nurse's Notes [facility] Name: Julito Alva III Age: 38 yrs Sex: Male : 1980 Arrival Date: 06/18/2019 Time: 14:54 Bed 8 Private MD: Diagnosis: Chest pain, unspecified;Dehydration Presentation: 06/18 15:35 Presenting complaint: Patient states: Placed on Levaquin 1 week ago for bronchitis, jl7 x-ray was negative for pneumonia, started feeling dizzy about 2 days into treatment, went back to doctor and she switched it to Zithromax and a different inhaler, felt fine this morning then started feeling heavy in the chest, dizzy, and tingling at 1300, reports LOC then drove 1. - 1.5 hours home. Transition of care: patient was not received from another setting of care. Onset of symptoms was June 18, 2019 at 13:00. Risk Assessment: Do you want to hurt yourself or someone else? Patient reports no desire to harm self or others. Initial Sepsis Screen: Does the patient meet any 2 criteria? No. Patient's initial sepsis screen is negative. Does the patient have a suspected source of infection? No. Patient's initial sepsis screen is negative. Care prior to arrival: None. 15:35 Method Of Arrival: Ambulatory [facility] 15:35 Acuity: MADDIE 3 jl7 Triage Assessment: 15:44 General: Appears in no apparent distress. uncomfortable, Behavior is calm, cooperative, jl7 appropriate for age. Pain: Complains of pain in mid-sternal area Pain radiates to left breast Pain currently is 3 out of 10 on a pain scale. Quality of pain is described as pressure, Pain began 3 hours ago. Is continuous. Neuro: Level of Consciousness is awake, alert, obeys commands, Oriented to person, place, time, situation. Cardiovascular: Patient's skin is warm and dry. Respiratory: Airway is patent Respiratory effort is even, unlabored, Respiratory pattern is regular, symmetrical. Historical: - Allergies: 15:44 unsure if allergic to recent antibiotics or inhalers; jl7 - Home Meds: 15:44 None [Active]; jl7 - PMHx: 15:44 None; jl7 - PSHx: 15:44 None; jl7 - Immunization history:: Adult Immunizations not up to date. - Coronavirus screen:: The patient has NOT traveled to [place] in the past 14 days. Proceed with normal triage process as indicated. - Social history:: Smoking status: Patient denies any tobacco usage or history of. - Ebola Screening: : No symptoms or risks identified at this time. Screenin:59 Abuse screen: Denies threats or abuse. Denies injuries from another. Nutritional sv screening: No deficits noted. Tuberculosis screening: No symptoms or risk factors identified. Fall Risk None identified. Assessment: 16:46 General: Appears in no apparent distress. Behavior is calm, cooperative. Pain: Denies ah pain. Neuro: Level of Consciousness is awake, alert, obeys commands, Oriented to person, place, time, situation, Mounting Inspector are equal bilaterally Reports Pt states that earlier today at work, around noon, he felt a heaviness in his chest and tingling in his lower extremities, he decided to go for a walk outside and get some fresh air. Upon returning to his desk, he states that he "blacked out" for just a few seconds and then he came to. . Cardiovascular: Heart tones S1 S2 present Capillary refill < 3 seconds Patient's skin is warm and dry. Pulses. 16:46 Respiratory: Airway is patent is compromised Breath sounds are clear bilaterally. GI: ah Reports nausea, this morning but has since subsided. : No signs and/or symptoms were reported regarding the genitourinary system. Derm: Skin is intact, is healthy with good turgor. Musculoskeletal: No signs and/or symptoms reported regarding the musculoskeletal system. 18:30 Reassessment: Patient appears in no apparent distress at this time. Patient and/or ah family updated on plan of care and expected duration. Pain level reassessed. Patient is alert, oriented x 3, equal unlabored respirations, skin warm/dry/pink. Patient denies pain at this time. Patient states feeling better. Vital Signs: 15:44 BP 139 / 93; Pulse 76; Resp 17 S; Temp 98.2(O); Pulse Ox 96% on R/A; Weight 117.93 kg jl7 (R); Height 6 ft. 1 in. (185.42 cm) (R); Pain 3/10; 16:26 BP 112 / 69 Supine; Pulse 73; Resp 17; Pulse Ox 91% on R/A; mh5 16:28 BP 123 / 82 Sitting; Pulse 76; Resp 14; Pulse Ox 98% on R/A; mh5 16:30 BP 120 / 83 Standing; Pulse 89; Resp 13; Pulse Ox 97% on R/A; mh5 17:23 BP 128 / 81; Pulse 74; Resp 21; Pulse Ox 95% ; sv 18:29 BP 122 / 81; Pulse 72; Resp 19; Pulse Ox 97% ; sv 15:44 Body Mass Index 34.30 (117.93 kg, 185.42 cm) 7 ED Course: 14:54 Patient arrived in ED. as 15:43 Triage completed. jl7 15:44 Arm band placed on right wrist. [facility] 15:49 Jose Rafael Abraham NP is PHCP. 15:49 Julio C Gomez MD is Attending Physician. 15:52 Leighann Badillo, RN is Primary Nurse. 16:23 Initial lab(s) drawn, by wi, sent to lab. Inserted saline lock: 22 gauge in right mh5 antecubital area, using aseptic technique. Blood collected. 16:24 Patient has correct armband on for positive identification. Placed in gown. Bed in low mh5 position. Call light in reach. Side rails up X 1. biometrics technician on. Pulse ox on. NIBP on. 16:25 Basic Metabolic Panel Sent. 5 16:25 CBC with Diff Sent. 5 16:25 LFT's Sent. 5 16:25 Magnesium Sent. 5 16:25 NT PRO-BNP Sent. 5 16:25 PT-INR Sent. 5 16:25 Troponin (emerg Dept Use Only) Sent. mh5 16:39 Patient maintains SpO2 saturation greater than 95% on room air. sv 16:46 Patient moved to radiology. sv 16:56 Patient moved back from radiology. sv 17:24 Chest Pa And Lat (2 Views) XRAY Sent. sv 18:19 Troponin (emerg Dept Use Only) Sent. sv 18:56 No provider procedures requiring assistance completed. intact, bleeding controlled, No ah redness/swelling at site. Pressure dressing applied. Administered Medications: 17:36 Drug: NS 0.9% 1000 ml Route: IV; Rate: 1000 ml; Site: right antecubital; 18:56 Follow up: IV Status: Completed infusion Outcome: 18:29 Discharge ordered by . pm1 18:55 Discharged to home ambulatory. 18:55 Condition: good 18:55 Discharge instructions given to patient, family, Instructed on discharge instructions, follow up and referral plans. Demonstrated understanding of instructions, follow-up care. 18:57 Patient left the ED. Signatures: Fay Milner RN Jonatan Purcell RN RN sg Martinez, Amelia as Marinas, Patrick, JANUARY CATTLE KILLER pm1 Steph Caputo [facility] Ron Carson RN RN 7 Leighann Badillo RN RN
--- NOTE | 2019-06-19 08:54 | EKG ---
Test Date: 2019-06-18 Test Time: 15:47:57 Investigative Agent: AL MEASUREMENT RESULTS: Intervals: Rate: 78 OH: 194 QRSD: 102 QT: 380 QTc: 433 [place]: P: 52 OH: 194 QRS: 24 T: 26 INTERPRETIVE STATEMENTS: Normal sinus rhythm Normal ECG Compared to ECG 11/11/2018 21:15:23 Left ventricular hypertrophy no longer present Electronically Signed On 06-19-19 08:52:57 SPRAY MACHINE LOADER by Woodrow Badillo
[2019-06-20 09:59] VITALS: TEMP 98.2
[2019-06-20 10:05] VITALS: BP 122/81; O2SAT 97
== END 2019-06-18 18:57 | disposition home or self-care (01) ==
LOC: ER 14:52
DX: R07.9 Chest pain, unspecified (principal); E86.0 Dehydration
CPT/HCPCS: 93005; 85025; 80048; 36415; 83735; 85610; 80076; 84484 ×2; 83880; 71046; 96360; 99285; J7030

== ENCOUNTER 2020-02-25 13:28 | Emergency (ER) | payer BC ==
--- NOTE | 2020-02-25 14:20 | RAD REPORT ---
EXAM DESCRIPTION: Jon Single View02/25/2020 2:11 pm CLINICAL HISTORY: Syncope//weight loss/shaking COMPARISON: June 2019 FINDINGS: The lungs appear clear of acute infiltrate. The heart is normal size IMPRESSION: No acute abnormalities displayed
[2020-02-25] MEDS ORDERED: NA CHLORIDE 0.9% 1,000 ML ONE (14:43)
[2020-02-25 14:57] LABS: Absolute Lymphocytes (CBC) 1.3 K/uL (0.7-4.9); Basophils % 0.2 % (0-1.3); Hematocrit 47.2 % (39.6-49.0); Lymphocytes % 15.4 % (15.3-44.8); MPV 8.7 fL (7.6-11.3); RBC Red Blood Cell Count 5.49 M/uL (4.33-5.43)
[2020-02-25 15:08] LABS: Protime INR 1.06
[2020-02-25 15:15] LABS: ALT/SGPT 32 U/L (12-78); AST/SGOT 19 U/L (15-37); Albumin 4.4 g/dL (3.4-5.0); Alkaline Phosphatase 64 U/L (45-117); BUN Blood Urea Nitrogen 13 mg/dL (7-18); Bicarbonate 30 mmol/L (21-32); Bilirubin Direct < 0.1 mg/dL (0-0.2); Bilirubin Total 0.4 mg/dL (0.2-1.0); Glucose Level 87 mg/dL (74-106); Magnesium 2.1 mg/dL (1.8-2.4); NT PRO-BNP 11 pg/mL (<125); Potassium 3.6 mmol/L (3.5-5.1); Protein, Total 8.7 g/dL (6.4-8.2); Sodium Level 137 mmol/L (136-145); Troponin (Emerg Dept Use Only) < 0.02 ng/mL (0.0-0.045)
--- NOTE | 2020-02-25 15:28 | ER ---
Nurse's Notes [facility] Name: Julito Alva III Age: 39 yrs Sex: Male : 1980 Arrival Date: 02/25/2020 Time: 13:30 Bed 23 [facility] MD: Diagnosis: Syncope and collapse Presentation: 02/24 13:38 Chief complaint: Patient states: Was having blood drawn at doctors office, passed off, ll1 started shaking. Passed out for less than a minute. Pale, weak, and shaky still. No fever. No N/V/D. Unexplained weight loss 30 pounds in 2 months. Coronavirus screen: Client denies travel out of the [place] in the last 14 days. At this time, the client does not indicate any symptoms associated with coronavirus-19. Ebola Screen: Patient denies travel to an Ebola-affected area in the 21 days before illness onset. Initial Sepsis Screen: Does the patient meet any 2 criteria? No. Patient's initial sepsis screen is negative. Does the patient have a suspected source of infection? No. Patient's initial sepsis screen is negative. Risk Assessment: Do you want to hurt yourself or someone else? Patient reports no desire to harm self or others. Onset of symptoms was February 25, 2020. 13:38 Method Of Arrival: Wheelchair ll1 13:38 Acuity: MADDIE 3 ll1 Historical: - Allergies: 13:41 unsure if allergic to recent antibiotics or inhalers; ll1 - PSHx: 13:41 None; ll1 - Immunization history:: Flu vaccine is not up to date. - Social history:: Smoking status: Patient denies any tobacco usage or history of. Screenin:08 Abuse screen: Denies threats or abuse. Nutritional screening: No deficits noted. jd3 Tuberculosis screening: No symptoms or risk factors identified. Fall Risk Ambulatory Aid- None/Bed Rest/Nurse Assist (0 pts). Gait- Normal/Bed Rest/Wheelchair (0 pts) Mental Status- Oriented to own ability (0 pts). Total Morrison Fall Scale indicates No Risk (0-24 pts). Assessment: 14:07 General: Appears in no apparent distress. uncomfortable, Behavior is calm, cooperative, jd3 appropriate for age. Pain: Complains of pain in head Quality of pain is described as aching, pressure. Neuro: Level of Consciousness is awake, alert, obeys commands, Oriented to person, place, time, situation, Moves all extremities. Full function Gait is steady, Speech is normal, Facial symmetry appears normal, Pupils are PERRLA, Reports dizziness, headache a syncopal episode. Cardiovascular: Heart tones present Capillary refill < 3 seconds Patient's skin is warm and dry. Respiratory: Airway is patent Respiratory effort is even, unlabored, Respiratory pattern is regular, symmetrical, Breath sounds are clear bilaterally. Denies cough, shortness of breath. GI: No signs and/or symptoms were reported involving the gastrointestinal system. Abdomen is round non-distended, Abd is soft and non tender X 4 quads. Patient currently denies constipation, diarrhea, nausea, vomiting. : No signs and/or symptoms were reported regarding the genitourinary system. EENT: No signs and/or symptoms were reported regarding the EENT system. Derm: Skin is intact, Skin is dry, Skin is normal, Skin temperature is warm. Musculoskeletal: Circulation, motion, and sensation intact. Range of motion: intact in all extremities. 14:59 Reassessment: Patient appears in no apparent distress at this time. No changes from jd3 previously documented assessment. Patient and/or family updated on plan of care and expected duration. Pain level reassessed. Patient is alert, oriented x 3, equal unlabored respirations, skin warm/dry/pink. 15:41 Reassessment: Patient appears in no apparent distress at this time. Patient and/or jd3 family updated on plan of care and expected duration. Pain level reassessed. Patient is alert, oriented x 3, equal unlabored respirations, skin warm/dry/pink. Vital Signs: 13:38 BP 129 / 90; Pulse 87; Resp 17; Temp 97.7; Pulse Ox 100% ; Weight 106.14 kg; Height 6 ll1 ft. 1 in. (185.42 cm); Pain 4/10; 14:59 BP 144 / 88; Pulse 83; Resp 17 S; Pulse Ox 100% on R/A; jd3 13:38 Body Mass Index 30.87 (106.14 kg, 185.42 cm) ll1 ED Course: 13:30 Patient arrived in ED. ag5 13:40 Triage completed. ll1 13:41 Arm band placed on Patient placed in an exam room, on a stretcher. ll1 13:50 Ceasar Hills PA is PHCP. [facility] 13:50 Lawson Torrez MD is Attending Physician. [facility] 14:03 Ezio Dumont, RN is Primary Nurse. jd3 14:08 Patient has correct armband on for positive identification. Bed in low position. Call jd3 light in reach. Side rails up X 1. Adult w/ patient. groundwater monitoring technician on. Pulse ox on. NIBP on. 14:11 XRAY Chest (1 view) In Process Unspecified. EDMS 14:29 Inserted saline lock: 20 gauge in right forearm, using aseptic technique. Blood jd3 collected. 15:41 No provider procedures requiring assistance completed. IV discontinued, intact, jd3 bleeding controlled, No redness/swelling at site. Pressure dressing applied. Administered Medications: 14:32 Drug: NS 0.9% 1000 ml Route: IV; Rate: 1 bolus; Site: right forearm; jd3 15:41 Follow up: Response: No adverse reaction; IV Status: Completed infusion; IV Intake: jd3 1000ml Intake: 15:41 IV: 1000ml; Total: 1000ml. jd3 Outcome: 15:27 Discharge ordered by . [facility] 15:41 Discharged to home ambulatory, with family. jd3 15:41 Condition: stable 15:41 Discharge instructions given to patient, family, Instructed on discharge instructions, follow up and referral plans. Demonstrated understanding of instructions, follow-up care. 15:41 Patient left the ED. jd3 Signatures: Dispatcher [employer] EDIL Ceasar Hills PA PA Ezio Jason, RN RN jd3 Matthew English Geovany Hernandes RN RN ll1
--- NOTE | 2020-02-25 15:28 | EDPHYS ---
Physician Documentation [facility] Name: Julito Alva III Age: 39 yrs Sex: Male : 1980 Arrival Date: 02/25/2020 Time: 13:30 Bed 23 Private MD: ED Physician Lawson Torrez HPI: 02/24 14:20 This 39 yrs old Male presents to ER via Wheelchair with complaints of Passed jmm Out Prior To Arrival. 14:20 The patient has experienced syncope. Onset: The symptoms/episode began/occurred jmm acutely, just prior to arrival. Associated injury: The patient did not suffer any apparent associated injury. Associated signs and symptoms: Pertinent positives: shortness of breath, Pertinent negatives: chest pain. This is a 39 year old male with no known chronic medical conditions that presents to the ED after a syncopal episode which occurred while drawing blood today. Patient states he did not eat today but has had blood drawn in the past without issue. Denies chest pain but states having chronic SOB after an injury. . Historical: - Allergies: 13:41 unsure if allergic to recent antibiotics or inhalers; ll1 - PSHx: 13:41 None; ll1 - Immunization history:: Flu vaccine is not up to date. - Social history:: Smoking status: Patient denies any tobacco usage or history of. ROS: 14:20 Constitutional: Negative for fever, chills, and weight loss, Cardiovascular: Negative jmm for chest pain, palpitations, and edema. 14:20 Respiratory: Positive for shortness of breath. 14:20 Neuro: Positive for syncope. 14:20 All other systems are negative. Exam: 14:16 ECG was reviewed by the Attending Physician. jmm 14:20 Constitutional: This is a well developed, well nourished patient who is awake, alert, jmm and in no acute distress. Head/Face: atraumatic. Eyes: EOMI, no conjunctival erythema appreciated ENT: Moist Mucus Membranes Neck: Trachea midline, Supple Chest/axilla: Normal chest wall appearance and motion. 14:20 Back: Normal ROM Skin: General appearance color normal MS/ Extremity: Moves all extremities, no obvious deformities appreciated, no edema noted to the lower extremities Neuro: Awake and alert, normal gait Psych: Behavior is normal, Mood is normal, Patient is cooperative and pleasant 14:20 Cardiovascular: Rate: normal, Rhythm: regular. 14:20 Respiratory: the patient does not display signs of respiratory distress, Respirations: normal, Breath sounds: are clear throughout. 14:20 Abdomen/GI: Inspection: abdomen appears normal, Bowel sounds: normal, Palpation: abdomen is soft and non-tender. Vital Signs: 13:38 BP 129 / 90; Pulse 87; Resp 17; Temp 97.7; Pulse Ox 100% ; Weight 106.14 kg; Height 6 ll1 ft. 1 in. (185.42 cm); Pain 4/10; 14:59 BP 144 / 88; Pulse 83; Resp 17 S; Pulse Ox 100% on R/A; jd3 13:38 Body Mass Index 30.87 (106.14 kg, 185.42 cm) ll1 MDM: 13:59 Patient medically screened. [facility] 15:26 Data reviewed: vital signs, nurses notes. Counseling: I had a detailed discussion with luciano the patient and/or guardian regarding: the historical points, exam findings, and any diagnostic results supporting the discharge/admit diagnosis, lab results, radiology results, the need for outpatient follow up, to return to the emergency department if symptoms worsen or persist or if there are any questions or concerns that arise at home. ED course: Labs unremarkable. Patient is advised to follow up with pcp or cardio for reevaluation. patient is otherwise given strict return precautions. patient understood and agrees with the plan of care. . 02/24 13:50 Order name: Basic Metabolic Panel; Complete Time: 15:17 [facility] 02/24 13:50 Order name: CBC with Diff; Complete Time: 15:17 [facility] 02/24 13:50 Order name: LFT's; Complete Time: 15:17 [facility] 02/24 13:50 Order name: Magnesium; Complete Time: 15:17 [facility] 02/24 13:50 Order name: NT PRO-BNP; Complete Time: 15:17 [facility] 02/24 13:50 Order name: PT-INR; Complete Time: 15:17 [facility] 02/24 13:50 Order name: Troponin (emerg Dept Use Only); Complete Time: 15:17 [facility] 02/24 13:50 Order name: XRAY Chest (1 view); Complete Time: 14:38 [facility] 02/24 13:50 Order name: EKG; Complete Time: 13:51 [facility] 02/24 13:50 Order name: Cardiac monitoring; Complete Time: 14:16 [facility] 02/24 13:50 Order name: EKG - Nurse/Tech; Complete Time: 14:16 [facility] 02/24 13:50 Order name: IV Saline Lock; Complete Time: 14:29 [facility] 02/24 14:14 Order name: D-Dimer; Complete Time: 15:17 [facility] 02/24 13:50 Order name: Labs collected and sent; Complete Time: 14:29 [facility] 02/24 13:50 Order name: O2 Per Protocol; Complete Time: 14:16 [facility] 02/24 13:50 Order name: O2 Sat Monitoring; Complete Time: 14:16 jmm EC:16 Rate is 77 beats/min. Rhythm is irregular, 1st Degree Block. QRS [place] is Normal. [place] jmm interval is normal. QRS interval is normal. QT interval is normal. No Q waves. T waves are Normal. No ST changes noted. Reviewed by me. Administered Medications: 14:32 Drug: NS 0.9% 1000 ml Route: IV; Rate: 1 bolus; Site: right forearm; jd3 15:41 Follow up: Response: No adverse reaction; IV Status: Completed infusion; IV Intake: jd3 1000ml Disposition: 02/25 06:25 Co-signature as Attending Physician, Lawson Torrez MD I agree with the assessment and kdr plan of care. Disposition: 02/25/20 15:27 Discharged to Home. Impression: Syncope and collapse. - Condition is Stable. - Discharge Instructions: Syncope. - Medication Reconciliation Form, Thank You Letter, Antibiotic Education, Prescription Opioid Use form. - Follow up: Private Physician; When: 2 - 3 days; Reason: Recheck today's complaints, Continuance of care, Re-evaluation by your physician. Signatures: Dispatcher [employer] EDLawson Howard MD MD kdr Mickail, Joel, PA PA jmm Davies, Jonathon, RN RN jd3 Lewis, Lynsay, RN RN ll1 Corrections: (The following items were deleted from the chart) 02/24 15:41 15:27 02/25/2020 15:27 Discharged to Home. Impression: Syncope and collapse. Condition jd3 is Stable. Forms are Medication Reconciliation Form, Thank You Letter, Antibiotic Education, Prescription Opioid Use. Follow up: Private Physician; When: 2 - 3 days; Reason: Recheck today's complaints, Continuance of care, Re-evaluation by your physician. luciano
[2020-02-25 16:32] VITALS: TEMP 97.7; O2SAT 100
[2020-02-25 16:36] VITALS: BP 144/88
--- NOTE | 2020-02-26 11:30 | EKG ---
Test Date: 2020-02-25 Test Time: 14:17:45 [employer]: [employer] MEASUREMENT RESULTS: Intervals: Rate: 77 OH: 230 QRSD: 102 QT: 378 QTc: 427 [place]in: P: 48 OH: 230 QRS: 30 T: 26 INTERPRETIVE STATEMENTS: Sinus rhythm with 1st degree AV block Otherwise normal ECG Compared to ECG 06/18/2019 15:47:57 First degree AV block now present Electronically Signed On 02-26-20 11:27:15 CDT by Romeo Osuna
== END 2020-02-25 15:41 | disposition home or self-care (01) ==
LOC: ER 13:28
DX: R55 Syncope and collapse (principal); R06.02 Shortness of breath
CPT/HCPCS: 93005; 85025; 80048; 36415; 83735; 85610; 85379; 80076; 84484; 83880; 71045; 96360; 99284; J7030